=== PATIENT | female | born 1955 | race Caucasian/White ===

== ENCOUNTER 2016-05-20 12:24 | Emergency (ER) | payer OTHER ==
[2016-05-20 14:01] VITALS: BP 132/78; PULSE 73; RESP 16; TEMP 97.9; O2SAT 94
--- NOTE | 2016-05-20 14:56 | EDPHY ---
H & P Chief Complaint Nursing Narrative: Pt. states turned to get glass of milk fell onto rt knee? but injurying rt ankle/foot(hx of crp). states hit head and +loc? , states did take fioricet last cristiane and 15mg of oxycodone prior to fall. Time Seen by Provider: 05/20/16 14:28 HPI/ROS: At 4:00 a.m. this patient got up to go to the bathroom at her home and lost her balance when she turned abruptly causing her to fall and injure her right ankle and leg. She also struck her head and had an LOC of unknown duration. She thinks that it was only for a brief time but she awakened on the floor and made her way back to bed with a sore leg. 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 She reports moderate pain to the right ankle and lateral leg at baseline that becomes severe if she attempts to bear weight. She denies any other injuries from the fall. ROS: No recent fevers or chills. No other constitutional symptoms. Neuro: The patient is epileptic but does not think she had a seizure. No bowel or bladder incontinence. She did not bite her tongue. HEENT: No vision changes or hearing changes. No lacerations. Musculoskeletal: No neck or back pain. Earlier she had right lateral neck pain that is improved but no midline pain. Pulmonary: No shortness of breath. No rib pain. Cardiovascular: She denies any lightheadedness prior to the fall. She thinks it was more of a mechanical fall but she also reports some dizziness from her medications that may have contributed. No other cardiovascular complaints integumentary: No lacerations and 10 point ROS is otherwise negative. Source: Patient Exam Limitations: No limitations - Medical/Surgical History PMH: Epilepsy Hx Asthma: No Hx Chronic Respiratory Disease: No Hx Diabetes: No Hx Cardiac Disease: No Hx Renal Disease: No Hx Cirrhosis: No Hx Alcoholism: No Hx HIV/AIDS: No Hx Splenectomy or Spleen Trauma: No Other PMH: epilepsy, migraine, depression, brain surgery - Family History Significant Family History: No pertinent family hx - Social History Smoking Status: Never smoked Alcohol Use: None Drug Use: None - Physical Exam Exam: Physical exam: Vital signs are normal General: Patient is in no acute distress. HEENT: Is no external evidence of trauma on exam. Eyes: Pupils are equal and reactive to light. Extraocular motions are intact. Optic fundi: Clear with no papilledema or hemorrhage. Nose atraumatic. Ears: Clear bilaterally with no hemotympanum. Oropharynx: No dental trauma or malocclusion. No intraoral lacerations. Neck: Trachea is midline with no stridor. The patient has no midline neck tenderness and retains a full range of motion without increase in pain. Lungs: Clear to auscultation bilaterally Cardiac: Regular rate and rhythm no murmur gallop or rub. Chest: Nontender. Abdomen: Soft nontender no organomegaly Back: Nontender Extremities: Atraumatic except for the right lower extremity Right lower extremity: Notable for tenderness at the distal fibula as well as proximal lateral leg. There is swelling at the distal fibula. She has limited range of motion at the ankle due to pain. Neuro: GCS of 15. Cranial nerves II through XII intact. 1 out of 3 five- minute memory is intact. Cerebellar exam is normal as judged by symmetric rapid hand movements bilaterally. No pronator drift. No sensory or motor deficits are appreciated. Initial differential diagnosis: Leg fracture versus ankle sprain. Likely mechanical fall, concussion, neck muscle strain Constitutional: Initial Vital Signs Temperature (C) 36.6 C 05/20/16 13:45 Heart Rate 73 05/20/16 13:45 Respiratory Rate 16 05/20/16 13:45 Blood Pressure 132/78 H 05/20/16 13:45 O2 Sat (%) 94 05/20/16 13:45 O2 Delivery Mode Room Air Allergies/Adverse Reactions: divalproex sodium [From Depakote] Allergy (Intermediate, Verified 05/20/16 13:46 ) hallucinations Home Medications: Medication Instructions Recorded DULoxetine [Cymbalta 60 MG (RX)] 06/07/15 Estradiol [Estrogel] 06/07/15 LEVETIRACETAM [Keppra 1000 mg] 06/07/15 Metaxalone PRN 06/07/15 OXcarbazepine [Trileptal 300mg 06/07/15 (RX)] Progesterone [Progesterone in Oil] 06/07/15 Topiramate [Topamax 100MG (RX)] 06/07/15 valACYclovir [Valtrex (RX)] 06/07/15 Centrum Silver Tablet 05/20/16 Gabapentin BID 05/20/16 Nerium 05/20/16 Medical Decision Making - Diagnostics Imaging: Ankle x-ray: Nondisplaced spiral fracture of the distal fibula by my interpretation Tib-fib x-ray: No proximal fibular findings. Spiral fracture distal fibula as noted above by my interpretation ED Course/Re-evaluation: Patient is placed in a walker boot. I counseled her regarding her fracture. She is treated with ibuprofen and Vicodin for analgesia. Also counseled her regarding her mild concussion. Despite her mild injury, no concerning findings on exam other than some limitation in her 5 minutes memory. However she reports that she has mild dementia and also a medications for epilepsy that obscure her short-term memory at baseline. Departure - Departure Disposition: Home, Routine, Self-Care Clinical Impression: Concussion Qualifiers: Encounter type: initial encounter Loss of consciousness presence/duration: with LOC of unspecified duration Qualifier Code: (S06.0X9A) Concussion with loss of consciousness of unspecified duration, initial encounter Fracture of ankle Qualifiers: Encounter type: initial encounter Fracture type: closed Laterality: right Qualifier Code: (S82.891A) Other fracture of right lower leg, initial encounter for closed fracture Condition: Good Instructions: Concussion (ED), Ankle Fracture (ED), Crutch Instructions (ED) Additional Instructions: Diagnoses: 1. Concussion with LOC 2. Ankle fracture Plan: Tylenol or Vicodin if needed for pain. Ice to affected ankle and elevated when possible With a walker boot whenever your up and about Crutches until he follow up with the promotions specialist for further evaluation. Call Dr. Easton (located upstairs) or Dr. Pickering (Same group as Dr. Fisher who is no longer in the group) to arrange follow-up appointment for further evaluation this week. If he develops unbearable headache, vomiting more than once or other concerns, go the emergency department for further evaluation of your head injury. Referrals: NONE *PRIMARY CARE P,. [Primary Care Provider] - As per Instructions
[2016-05-20] MEDS ORDERED: HYDROCODONE/APAP 5/325 TAB PO ONE (15:16)
[2016-05-20] MEDS ORDERED: IBUPROFEN 200 MG TAB PO ONE (15:16)
--- NOTE | 2016-05-20 15:22 | DX ---
Right ankle 3 views History: Pain after fall. Comparison: Right tibia and fibula and foot from the same day. Right ankle January 17, 2011. Findings: There is an oblique nondisplaced fracture of the distal fibula, with no significant angulat ion. The talar dome and ankle mortise are intact. Alignment is normal. Corticated structure at the an terior aspect of the distal tibia is unchanged since 2010. Small calcaneal spurs are present at the p lantar aponeurosis and Achilles insertion. Impression: Nondisplaced oblique fracture of the distal fibula.
--- NOTE | 2016-05-20 15:24 | DX ---
Right foot 3 views History: Pain after fall. Comparison: Ankle from the same day. Findings: There is limited visualization of an oblique nondisplaced fracture of the distal fibula see n better on ankle from the same day. 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 Alignment is normal. Small plantar and Achilles calcaneal enthesophytes are noted. Impression: Oblique nondisplaced fracture of the distal fibula.
--- NOTE | 2016-05-20 15:26 | DX ---
Right tibia and fibula 2 views History: Right leg pain after fall. Comparison: Ankle from the same day. Findings: There is an oblique nondisplaced fracture of the distal fibula. Alignment at the knee and a nkle is normal. Medial soft tissue swelling is noted in the ankle. Impression: Oblique nondisplaced distal fibular fracture.
[2016-05-20] MEDS ORDERED: IBUPROFEN 600 MG TAB PO ONE (15:34)
== END 2016-05-20 16:20 | disposition home or self-care (01) ==
LOC: CED 12:24
DX: S06.0X9A Concussion with loss of consciousness of unspecified duration, initial encounter (principal); S82.434A Nondisplaced oblique fracture of shaft of right fibula, initial encounter for closed fracture; G40.909 Epilepsy, unspecified, not intractable, without status epilepticus
CPT/HCPCS: 73590; 73610; 73630; G0463; L4386

== ENCOUNTER → 2017-01-22 | Outpatient (CLI) | payer OTHER | LOC: FIMAGING 14:14 | PROVIDERS: ATTEND Obstetrics & Gynecology Gynecology | DX: Z12.31 Encounter for screening mammogram for malignant neoplasm of breast (principal) | CPT/HCPCS: G0202 ==

== ENCOUNTER → 2018-02-13 | Outpatient (CLI) | payer OTHER | LOC: FIMAGING 11:51 | PROVIDERS: ATTEND Obstetrics & Gynecology Gynecology | DX: Z12.31 Encounter for screening mammogram for malignant neoplasm of breast (principal) ==